=== PATIENT | male | born 1960 | race Hispanic/Latino ===

== ENCOUNTER 2024-04-18 11:21 | Emergency (ER) | payer OTHER ==
[2024-04-18] MEDS ORDERED: NA CHLORIDE 0.9% 1,000 ML ONE (12:45)
[2024-04-18 12:52] LABS: Absolute Lymphocytes (CBC) 0.8 K/uL (0.7-4.9); Absolute Monocytes 0.6 K/uL (0.1-1.3); Absolute Neutrophil 10.2 K/uL (1.8-8.0); Basophils % 0.2 % (0-1.3); Eosinophils % 0.1 % (0-4.4); Hematocrit 42.5 % (39.6-49.0); Hemoglobin 13.7 g/dL (13.6-17.9); Lymphocytes % 6.7 % (15.3-44.8); MCH 29.2 pg (27.0-35.0); MCHC 32.3 g/dL (32.0-36.0); MCV 90.4 fL (80-100); MPV 9.5 fL (7.6-11.3); Platelets 227 thou/uL (152-406); RBC Red Blood Cell Count 4.71 M/uL (4.33-5.43)
[2024-04-18 13:05] LABS: Specific Gravity 1.025 (1.005-1.030); Sqamous Epithelial None Seen /HPF (None Seen); Urine Bacteria None Seen /HPF (<20); Urine Bilirubin NEGATIVE (Negative); Urine Blood Negative (Negative); Urine Clarity Turbid (Clear); Urine Color Yellow (Yellow); Urine Culture Reflex Order NOT NEEDED; Urine Glucose NEGATIVE (Negative); Urine Ketones NEGATIVE (Negative); Urine Microscopic Reflex YN ORDER UMIC; Urine Mucus 1+ /HPF (None Seen); Urine Nitrite NEGATIVE (Negative); Urine Protein TRACE (Negative); Urine RBC <5 /HPF (None Seen); Urine Urobilinogen Normal (Normal); Urine WBC <5 /HPF (<5)
[2024-04-18 13:11] LABS: Blood Morphology Comment NOT SEEN (NOT SEEN); Platelet Estimate ADEQ; White Blood Cell Scan OK (OK)
[2024-04-18 13:17] LABS: Albumin 3.8 g/dL (3.4-5.0); Bilirubin Total 1.1 mg/dL (0.2-1.0); Globulin 3.8 g/dL (2.3-3.5); Protein, Total 7.6 g/dL (6.4-8.2); Thyroid Stimulating Hormone 1.55 uIU/mL (0.358-3.740); Troponin High Sensitivity 3.5 pg/mL (<58.9)
--- NOTE | 2024-04-18 14:02 | RAD REPORT ---
EXAM DESCRIPTION: CT - Head Brain Wo Cont - 04/18/2024 1:40 pm CLINICAL HISTORY: confusion Headache, drowsiness, confusion is COMPARISON: <Comparisons> TECHNIQUE: All CT scans are performed using dose optimization technique as appropriate and may inclu de automated exposure control or mA/KV adjustment according to patient size. FINDINGS: No intracranial hemorrhage, hydrocephalus or extra-axial fluid collection.Mild brain atrop hy.No areas of brain edema or evidence of midline shift. The paranasal sinuses and mastoids are clear. The calvarium is intact. IMPRESSION: No acute intracranial abnormality.
--- NOTE | 2024-04-18 14:15 | RAD REPORT ---
EXAM DESCRIPTION: CTAbdomen Pelvis W Contrast - 04/18/2024 1:40 pm CLINICAL HISTORY: Abdominal pain. ABD PAIN COMPARISON: <Comparisons> TECHNIQUE: Biphasic CT imaging of the abdomen and pelvis was performed with 100 ml non-ionic IV cont rast. All CT scans are performed using dose optimization technique as appropriate and may include automated exposure control or mA/KV adjustment according to patient size. FINDINGS: The lung bases are clear. Mild fatty liver is seen. No aggressive liver lesion or biliary dilatation present. The spleen, pancr eas, right adrenal gland are normal. 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 Bilatera l renal cysts are noted, largest on the left measuring 3.4 cm. No renal stone or hydronephrosis. No bowel obstruction, free air, free fluid or abscess. Mild thickened appearance to the descending co barbra wall is seen suggesting a mild left-sided colitis. The appendix is normal. No evidence of signif icant lymphadenopathy. No acute fractures seen. Lumbar degenerative changes are present. IMPRESSION: Mild left-sided colitis pattern is suspected.
--- NOTE | 2024-04-18 14:39 | ER ---
Nurse's Notes [facility] Name: Tj Boyd Age: 63 yrs Sex: Male : 1960 Arrival Date: 04/18/2024 Time: 11:21 Bed 20 Private MD: Diagnosis: Left sided colitis Presentation: 04/18 11:27 Chief complaint: Patient states: last night took a gummy to help him sleep last night, iw I woke up at 2 am and slipped on a towel, fell straight down , back against wall, he was really dizzy . He went to bed and when he had a BM this morning there was red when he wiped. 11:27 Acuity: GORDO 3 iw 11:29 Coronavirus screen: At this time, the client does not indicate any symptoms associated iw with coronavirus-19. Ebola Screen: No symptoms or risks identified at this time. Initial Sepsis Screen: Does the patient meet any 2 criteria? No. Patient's initial sepsis screen is negative. Does the patient have a suspected source of infection? No. Patient's initial sepsis screen is negative. Risk Assessment: Do you want to hurt yourself or someone else? Patient reports no desire to harm self or others. Onset of symptoms was April 18, 2024. 11:29 Method Of Arrival: Ambulatory iw Historical: - Allergies: 11:30 No Known Allergies; iw - PMHx: 11:30 Hypertensive disorder; Hypothyroidism; iw - PSHx: 11:30 knee; iw - Immunization history:: Adult Immunizations up to date. - Infectious Disease History:: Denies. - Social history:: Smoking status: Patient denies any tobacco usage or history of. Smoking status: Patient/guardian denies using tobacco, but has a distant history of tobacco abuse. - Family history:: not pertinent. Screenin:54 [facility] ED Fall Risk Assessment (Adult) History of falling in the last 3 months, tm6 including since admission Yes- physiologic fall (2 pts) Confusion or Disorientation No (0 pts) Intoxicated or Sedated No (0 pts) Impaired Gait No (0 pts) Mobility Assist Device Used No (0 pt) Altered Elimination No (0 pt) Score/Fall Risk Level 0 - 2 = Low Risk Oriented to surroundings, Maintained a safe environment, Educated pt \T\ family on fall prevention, incl call for assistance when getting out of bed. Abuse screen: Denies threats or abuse. Denies injuries from another. Nutritional screening: No deficits noted. Tuberculosis screening: No symptoms or risk factors identified. Assessment: 12:54 General: Appears in no apparent distress. Behavior is calm, cooperative. Pain: Denies tm6 pain. Neuro: Level of Consciousness is awake, alert, obeys commands, Oriented to person, place, time, situation, Reports dizziness, since this morning. Cardiovascular: Patient's skin is warm and dry. Respiratory: Airway is patent Respiratory effort is even, unlabored, Respiratory pattern is regular, symmetrical. GI: Abdomen is round Reports bloating, bloody stool. : No signs and/or symptoms were reported regarding the genitourinary system. EENT: No signs and/or symptoms were reported regarding the EENT system. Derm: No signs and/or symptoms reported regarding the dermatologic system. Musculoskeletal: No signs and/or symptoms reported regarding the musculoskeletal system. 14:47 Reassessment: Patient appears in no apparent distress at this time. Patient and/or tm6 family updated on plan of care and expected duration. Pain level reassessed. Patient is alert, oriented x 3, equal unlabored respirations, skin warm/dry/pink. Vital Signs: 11:29 BP 122 / 79; Pulse 65; Resp 16; Temp 97; Pulse Ox 100% on R/A; Weight 88.45 kg; Height iw 5 ft. 7 in. ; 12:57 BP 123 / 69; Pulse 46; Resp 18; Pulse Ox 99% on R/A; tm6 14:47 BP 118 / 69; Pulse 50; Resp 19; Temp 97.3; Pulse Ox 100% on R/A; Pain 0/10; tm6 11:29 Body Mass Index 30.54 (88.45 kg, 170.18 cm) iw 14:47 Pain Scale: Adult tm6 ED Course: 11:23 Patient arrived in ED. mr 11:29 Triage completed. iw 11:30 Arm band placed on. iw 11:35 Jama Forde MD is Attending Physician. rt 12:21 Trang Truong RN is Primary Nurse. tm6 12:54 Patient has correct armband on for positive identification. Bed in low position. Call tm6 light in reach. Side rails up X 1. Provided Education on: use of call ortez. Client placed on continuous cardiac and pulse oximetry monitoring. NIBP monitoring applied. electronic device monitor on. Pulse ox on. NIBP on. Door closed. Noise minimized. 12:54 EKG done, by ED staff, reviewed by Trang Truong RN. Inserted saline lock: 20 gauge tm6 in left antecubital area, using aseptic technique. Blood collected. Flushed with 10 mL NS. 12:54 No provider procedures requiring assistance completed. tm6 12:56 Troponin High Sensitivity Sent. tm6 12:56 TSH Sent. tm6 12:56 CPK Sent. tm6 12:56 CMP Sent. tm6 12:56 Lipase Sent. tm6 12:56 Urinalysis w/ reflexes Sent. tm6 13:42 CT Abd/Pelvis - IV Contrast Only In Process Unspecified. EDMS 13:42 CT Head Brain wo Cont In Process Unspecified. EDMS 14:38 Chris Dailey MD is Referral Physician. rt 14:47 IV discontinued, intact, bleeding controlled, No redness/swelling at site. Pressure tm6 dressing applied. Administered Medications: 12:56 Drug: NS 0.9% IV 1000 ml IV at 1 bolus Per protocol; 1000 mL bolus Route: IV; Rate: 1 tm6 bolus; Site: left antecubital; 14:40 Follow up: Response: No adverse reaction; IV Status: Completed infusion; IV Intake: tm6 1000ml Medication: 12:54 VIS not applicable for this client. tm6 Intake: 14:40 IV: 1000ml; Total: 1000ml. tm6 Outcome: 14:38 Discharge ordered by MD. rt 14:47 Discharged to home ambulatory, with family, tm6 14:47 Condition: stable 14:47 Discharge instructions given to patient, family, Instructed on discharge instructions, follow up and referral plans. medication usage, Demonstrated understanding of instructions, follow-up care, medications, Prescriptions given X 1, 14:47 Patient left the ED. tm6 Signatures: Dispatcher [employer] EDWV TaveraSamanta, [place] Reg Evonne Guevara, RN RN Jama Childs MD MD rt Trang Truong RN RN tm6 Corrections: (The following items were deleted from the chart) 11:31 11:29 BP 122 / 79; Pulse 65bpm; Resp 16bpm; Pulse Ox 100% RA; Temp 97F; iw iw
--- NOTE | 2024-04-18 14:39 | EDPHYS ---
Physician Documentation [facility] Name: Tj Boyd Age: 63 yrs Sex: Male : 1960 Arrival Date: 04/18/2024 Time: 11:21 Bed 20 Private MD: ED Physician Jama Forde HPI: 04/18 13:31 This 63 yrs old Male presents to ER via Ambulatory with complaints of Fall rt Injury, Dizziness, Bloody Stools. 13:31 Patient presents to the ED with a fall. The patient reportedly took a THC gummy last rt night to help him relax, was confused and he woke up, he slipped on a tile hitting his back on the wall and landing on his buttocks. He reports having brown stools but reports seeing red when he wiped. Denies other acute complaints at this time, symptoms are moderate in severity, no other aggravating or elevating factors. Historical: - Allergies: 11:30 No Known Allergies; iw - PMHx: 11:30 Hypertensive disorder; Hypothyroidism; iw - PSHx: 11:30 knee; iw - Immunization history:: Adult Immunizations up to date. - Infectious Disease History:: Denies. - Social history:: Smoking status: Patient denies any tobacco usage or history of. Smoking status: Patient/guardian denies using tobacco, but has a distant history of tobacco abuse. - Family history:: not pertinent. ROS: 13:31 Constitutional: Negative for fever, chills, and weight loss, Eyes: Negative for injury, rt pain, redness, and discharge, Cardiovascular: Negative for chest pain, palpitations, and edema, Respiratory: Negative for shortness of breath, cough, wheezing, and pleuritic chest pain, MS/Extremity: Negative for injury and deformity, Skin: Negative for injury, rash, and discoloration, 13:31 Abdomen/GI: Positive for rectal bleeding, Negative for abdominal pain, 13:31 Neuro: Positive for dizziness, confusion, Exam: 13:31 Constitutional: This is a well developed, well nourished patient who is awake, alert, rt and in no acute distress. Head/Face: Normocephalic, atraumatic. Chest/axilla: Normal chest wall appearance and motion. Nontender with no deformity. No lesions are appreciated. Cardiovascular: Regular rate and rhythm with a normal S1 and S2. No gallops, murmurs, or rubs. Normal PMI, no JVD. No pulse deficits. Respiratory: Lungs have equal breath sounds bilaterally, clear to auscultation and percussion. No rales, rhonchi or wheezes noted. No increased work of breathing, no retractions or nasal flaring. Abdomen/GI: Soft, non-tender, with normal bowel sounds. No distension or tympany. No guarding or rebound. No evidence of tenderness throughout. Skin: Warm, dry with normal turgor. Normal color with no rashes, no lesions, and no evidence of cellulitis. MS/ Extremity: Pulses equal, no cyanosis. Neurovascular intact. Full, normal range of motion. Neuro: Awake and alert, GCS 15, oriented to person, place, time, and situation. Cranial nerves II-XII grossly intact. Motor strength 5/5 in all extremities. Sensory grossly intact. Cerebellar exam normal. Normal gait. 13:31 ECG was reviewed by the Attending Physician. 13:31 Abdomen/GI: No external hemorrhoids, anal fissure seen, no active bleeding, Vital Signs: 11:29 BP 122 / 79; Pulse 65; Resp 16; Temp 97; Pulse Ox 100% on R/A; Weight 88.45 kg; Height iw 5 ft. 7 in. ; 12:57 BP 123 / 69; Pulse 46; Resp 18; Pulse Ox 99% on R/A; tm6 14:47 BP 118 / 69; Pulse 50; Resp 19; Temp 97.3; Pulse Ox 100% on R/A; Pain 0/10; tm6 11:29 Body Mass Index 30.54 (88.45 kg, 170.18 cm) iw 14:47 Pain Scale: Adult tm6 MDM: 12:16 Patient medically screened. rt 15:53 Differential diagnosis: Colitis, diverticulitis, bowel obstruction. Data reviewed: rt vital signs, nurses notes, lab test result(s), radiologic studies. Consideration of Admission/Observation Escalation of care including admission/observation considered. No signs of upper GI bleed, symptoms improving with treatment in the ED, stable vital signs, unremarkable labs, mild colitis on CT scan, stable for outpatient care, instructed to follow-up with gastroenterology as an outpatient, return precautions discussed.. I considered the following discharge prescriptions or medication management in the emergency department Medications were administered in the Emergency Department. See MAR. Independent interpretation of the following test(s) in the Emergency Department CT Scan: My interpretation is No bowel obstruction seen on interpretation of CT scan images. Care significantly affected by the following chronic conditions: Hypertension. Counseling: I had a detailed discussion with the patient and/or guardian regarding the historical points, exam findings, and any diagnostic results supporting the discharge/admit diagnosis, lab results, radiology results, the need for outpatient follow up, to return to the emergency department if symptoms worsen or persist or if there are any questions or concerns that arise at home. Response to treatment: the patient's symptoms have markedly improved after treatment. 04/18 12:23 Order name: CBC with Diff; Complete Time: 13:18 rt 04/18 12:23 Order name: CMP; Complete Time: 13:18 rt 04/18 12:23 Order name: Lipase; Complete Time: 13:18 rt 04/18 12:23 Order name: Urinalysis w/ reflexes; Complete Time: 13:18 rt 04/18 12:23 Order name: CPK; Complete Time: 13:18 rt 04/18 12:23 Order name: Troponin High Sensitivity; Complete Time: 13:18 rt 04/18 12:23 Order name: TSH; Complete Time: 13:18 rt 04/18 12:55 Order name: CBC Smear Scan; Complete Time: 13:18 EDMS 04/18 12:23 Order name: CT Abd/Pelvis - IV Contrast Only; Complete Time: 14:16 rt 04/18 12:23 Order name: CT Head Brain wo Cont; Complete Time: 14:16 rt 04/18 12:23 Order name: IV Saline Lock; Complete Time: 12:56 rt 04/18 12:23 Order name: Labs collected and sent; Complete Time: 12:56 rt 04/18 12:23 Order name: EKG - Nurse/Tech; Complete Time: 12:56 rt EC:31 Rate is 52 beats/min. Rhythm is regular, Sinus bradycardia with No ectopy. QRS [place] is rt Normal. [place] interval is normal. QRS interval is normal. QT interval is normal. No Q waves. T waves are Normal. No ST changes noted. Interpreted by me. Administered Medications: 12:56 Drug: NS 0.9% IV 1000 ml IV at 1 bolus Per protocol; 1000 mL bolus Route: IV; Rate: 1 tm6 bolus; Site: left antecubital; 14:40 Follow up: Response: No adverse reaction; IV Status: Completed infusion; IV Intake: tm6 1000ml Disposition Summary: 04/18/24 14:38 Discharge Ordered Notes: Location: Home rt Problem: new rt Symptoms: have improved rt Condition: Stable rt Diagnosis - Left sided colitis rt Followup: rt - With: Chris Dailey MD - When: 10 - 14 days - Reason: Discharge Instructions: - Discharge Summary Sheet rt - Colitis rt Forms: - Medication Reconciliation Form rt - Antibiotic Education rt - Prescription Opioid Use rt - Patient Portal Instructions rt - Leadership Thank You Letter rt Prescriptions: - Augmentin 875-125 mg Oral Tablet - take 1 tablet ORAL route every 12 hours for 10 days; 20 tablet; Refills: 0, rt Product Selection Permitted Signatures: Dispatcher [employer] Evonne Juarez, RN CHARITY iw Jama Forde MD MD rt Trang Truong RN RN tm6 Corrections: (The following items were deleted from the chart) 12:24 12:24 Abdomen Pelvis W Con+CT.RAD.BRZ ordered. EDMS EDMS 12:24 12:24 Head Brain Wo Cont+CT.RAD.BRZ ordered. EDMS EDMS
[2024-04-18 15:13] VITALS: BP 118/69; TEMP 97.3; O2SAT 100
--- NOTE | 2024-04-19 12:10 | EKG ---
Test Date: 2024-04-18 Test Time: 12:33:51 [employer] Developer: ULI MEASUREMENT RESULTS: Intervals: Rate: 52 [place]: 168 QRSD: 94 QT: 438 QTc: 407 [place]: P: 50 [place]: 168 QRS: 54 T: 42 INTERPRETIVE STATEMENTS: Sinus bradycardia with sinus arrhythmia Otherwise normal ECG Compared to ECG 06/05/2003 15:33:00 Left ventricular hypertrophy no longer present Electronically Signed On 04-19-24 12:07:14 CDT by Blaise Malagon
== END 2024-04-18 14:47 | disposition home or self-care (01) ==
LOC: ER 11:21
DX: K51.50 Left sided colitis without complications (principal); R42 Dizziness and giddiness; W01.0XXA Fall on same level from slipping, tripping and stumbling without subsequent striking against object, initial encounter; I10 Essential (primary) hypertension
CPT/HCPCS: 96361; 93005; 85025; 81001; 36415; 82550; 84443; 84484; 83690; 80053; 70450; 74177; 96360; 99285; Q9967; J7030

== ENCOUNTER 2025-03-27 09:53 | Day surgery (SDC) | payer OTHER ==
[2025-03-27 10:42] LABS: Absolute Lymphocytes (CBC) 1.4 K/uL (0.7-4.9); Hematocrit 39.8 % (39.6-49.0); Hemoglobin 13.3 g/dL (13.6-17.9); MCH 29.0 pg (27.0-35.0); MCHC 33.5 g/dL (32.0-36.0); MCV 86.6 fL (80-100); MPV 9.8 fL (7.6-11.3); Nucleated RBC Absolute Count 0.0 (0-0); Nucleated Red Blood Cells % 0.1 % (0-0); RBC Red Blood Cell Count 4.60 M/uL (4.33-5.43); White Blood Count 5.50 thou/uL (4.3-10.9)
[2025-03-27 10:47] LABS: PT Prothrombin Time 12.9 SECONDS (10-13.0); PTT, Activated Partial Thromb 33.5 SECONDS (27.2-37.4); Protime INR 1.15
[2025-03-27 10:56] LABS: ALT/SGPT 25.0 U/L (16-61); AST/SGOT 12.0 U/L (15-37); Albumin 3.5 g/dL (3.4-5.0); Albumin/Globulin Ratio 1.2 (1.1-1.8); Alkaline Phosphatase 109.0 U/L (45-117); Anion Gap 8.5 mEq/L (5.0-15.0); BUN Blood Urea Nitrogen 11.0 mg/dL (7-18); Bilirubin Indirect, Calculated 0.6 mg/dL (0.2-0.8); Globulin 3.0 g/dL (2.3-3.5); Glucose Level 92.0 mg/dL (74-106); Potassium 3.5 mEq/L (3.5-5.1)
[2025-03-27 12:26] VITALS: BMI 29.6
--- NOTE | 2025-03-27 12:48 | RAD REPORT ---
PROCEDURE: FLUOROSCOPY GUIDED LUMBAR PUNCTURE CLINICAL INDICATION: R41.89, D51.9, E55.9,E03.9,K25.9,F40.240,I10 COMPLICATIONS: No immediate complications. PROCEDURE DETAILS: Consent: Informed consent for the procedure including risks, benefits and alternatives was obtained a nd time-out was performed prior to the procedure. Preparation: The patient was positioned prone on the fluoroscopic table. Appropriate area of the back was prepared and draped using all elements of maximal sterile barrier technique including sterile gloves, sterile gown, cap, mask, large sterile sheet, hand hygiene and cutaneous antisepsis with 2% c hlorhexidine. Imaging prior to procedure: Plain radiographs of the lumbar spine. Procedure: Local anesthesia was administered. Under fluoroscopic guidance, a spinal needle was advanc ed into the subarachnoid space at the level of L3-4. Fluid obtained: 11 cc of clear CSF Opening pressure: Subjectively normal. Fluoroscopy time: 1 minute 1 second Estimated blood loss: Less than 10 mL. IMPRESSION: Technically successful fluoroscopic-guided lumbar puncture as detailed.
[2025-03-27 15:44] VITALS: O2SAT 98
[2025-03-27 15:54] VITALS: BP 122/69; TEMP 97.4
[2025-03-27 17:59] LABS: Color of Supernate Not Xanthochromic (Not Xantho); Color of fluid Colorless (COLORLESS); Fluid Total Volume 12.5 ml
== END 2025-03-27 14:44 | disposition home or self-care (01) ==
LOC: DS 09:53
PROVIDERS: ATTEND Psychiatry & Neurology Neurology with Special Qualifications in Child Neurology
PROC: 009U3ZX Drainage of Spinal Canal, Percutaneous Approach, Diagnostic (ICD-10-PCS; principal; 2025-03-27)
PROC: B01BZZZ Fluoroscopy of Spinal Cord (ICD-10-PCS; 2025-03-27)
DX: R41.89 Other symptoms and signs involving cognitive functions and awareness (principal); D51.9 Vitamin B12 deficiency anemia, unspecified; E55.9 Vitamin D deficiency, unspecified; I10 Essential (primary) hypertension; E03.9 Hypothyroidism, unspecified; K25.9 Gastric ulcer, unspecified as acute or chronic, without hemorrhage or perforation; F40.240 Claustrophobia
CPT/HCPCS: 36415; 62328; 77003; 80048; 80076; 82542; 82945; 84157; 85025; 85610; 85730; 89050